=== PATIENT | male | born 1990 | race Caucasian/White ===

== ENCOUNTER 2016-12-09 14:40 | Emergency (ER) | payer OTHER ==
[~2016-12-09] VITALS: Ht 170.2 cm; Wt 68.0 kg
[2016-12-09] MEDS ORDERED: PROAIR HFA8.5 GM INH (15:11)
[2016-12-09] MEDS ORDERED: SERTRALINE HCL50 MG PO (15:11)
[2016-12-09 15:13] LABS: ABSOLUTE BASOPHIL COUNT 0 /CUMM (0.0-0.2); ABSOLUTE EOSINOPHIL COUNT 0 /CUMM (0.0-0.7); ABSOLUTE GRANULOCYTE CT 6.7 /CUMM (1.4-6.5); ABSOLUTE LYMPH COUNT 1.9 /CUMM (1.2-3.4); ABSOLUTE MONOCYTE COUNT 0.6 /CUMM (0.10-0.60); BASOPHIL % 0.3 % (0.0-2.0); EOSINOPHIL % 0.1 % (0-5); GRANULOCYTE % 72.5 % (42.2-75.2); HEMATOCRIT 49.4 % (42-52); MEAN CORPUSCULAR HGB 29.4 PG (27.0-31.0); MEAN CORPUSCULAR HGB CONC 33.8 G/DL (33.0-37.0); MEAN PLATELET VOLUME 7.5 FL (7.4-10.4); PLATELET COUNT 321 /CUMM (130-400); RBC DISTRIBUTION WIDTH 12.2 % (11.5-14.5); RED BLOOD CELL CT 5.68 /CUMM (4.70-6.10); WHITE BLOOD CELL COUNT 9.3 /CUMM (4.8-10.8)
--- NOTE | 2016-12-09 15:15 | ED PSYCHIATRIC COMPLAINT ---
History of Present Illness General Chief Complaint: Psychiatric Related Complaint Stated Complaint: ANXIETY/DEPRESSION Source: patient, family (mother) Exam Limitations: no limitations Vital Signs & Intake/Output Vital Signs & Intake/Output ED Intake and Output 12/10 0000 12/09 1200 Intake Total Output Total Balance Patient 150 lb Weight Allergies Coded Allergies: No Known Allergies (12/09/16) Reconcile Medications Albuterol Sulfate (Proair Hfa) 90 MCG HFA.AER.AD 2 PUF INH Q4-6 PRN PRN ASTHMA (Reported) Lorazepam (Ativan) 0.5 MG TABLET 1 TAB PO Q8H PRN anxiety Sertraline HCl 50 MG TABLET 1 TAB PO DAILY DEPRESSION (Reported) Triage Note: PT TO ED C/O DEPERSONALIZATION DISORDER. PT WAS RECENTLY PLACED ON ZOLOFT 1 WEEK AGO AND SINCE THEN SYMPTOMS HAVE GOTTEN WORSE AND CONSTANT. PT STATES HE FEELS LIKE HE'S NOT IN HIS BODY. DENIES ANY OTHER DAILY MEDS. -HI. UNSURE IF HE WANTS TO HURT HIMSELF "I JUST WANT TO FEEL BETTER." WAS ADMITTED AT 17 FOR CUTTING FROM SI THOUGHTS, HAS THE SAME SI FEELINGS NOW. PT BROUGHT DIRECTLY TO AREA Triage Nurses Notes Reviewed? yes HPI: Patient is a 26 year old male presents complaining of anxiety and depression. Patient has a history of depersonalization disorder, reports that he had a severe exacerbation on 10/18/16 that he was able to recover from, but since the end of October his symptoms have been worsening. Severe over the past 3 days. does not feel in touch with himself or things around him. Was started on Zoloft on 12/04/16. [place] euphoric the first day, anxious the 2nd day and worsening symptoms since. Difficulty sleeping, decreased appetite. Increased stress from his roommate leaving recently. Denies alcohol use, illicit drug use, suicidal ideation. (PATRICIA STONE,SUNSHINE) Past History Travel History Traveled to [place] past 21 day No Medical History Any Pertinent Medical History? see below for history Neurological: NONE EENT: NONE Cardiovascular: NONE Respiratory: NONE Gastrointestinal: NONE Hepatic: NONE Renal: NONE Musculoskeletal: NONE Psychiatric: depersonalization disorder Surgical History Surgical History: non-contributory Psychosocial History What is your primary language Nepali Tobacco Use: Never used ETOH Use: occasional use Illicit Drug Use: denies illicit drug use Family History Hx Contributory? No (SUNSHINE ZHOU) Review of Systems Review of Systems Constitutional: Denies: chills, fever. EENTM: Reports: no symptoms. Respiratory: Denies: short of breath. Cardiovascular: Denies: chest pain. GI: Denies: abdominal pain, nausea, vomiting. Genitourinary: Reports: no symptoms. Musculoskeletal: Reports: no symptoms. Skin: Reports: no symptoms. Neurological/Psychological: Reports: see HPI. Hematologic/Endocrine: Reports: no symptoms. Immunologic/Allergic: Reports: no symptoms. (SUNSHINE ZHOU) Physical Exam Physical Exam General Appearance: well developed/nourished, alert, awake Head: atraumatic, normal appearance Eyes: Bilateral: normal appearance. Ears, Nose, Throat: hearing grossly normal Neck: normal inspection, supple, full range of motion Respiratory: normal breath sounds, chest non-tender, no respiratory distress, lungs clear Cardiovascular: regular rate/rhythm Gastrointestinal: soft, non-tender Extremities: normal range of motion Neurological/Psychiatric: no motor/sensory deficits, awake, alert Appearance/Memory/Insight: appropriate appearance Behavoir/Eye Contact/Speech: cooperative, good eye contact Thoughts/Hallucinations: no apparent hallucination, no suicidal ideation Skin: intact, normal color, warm/dry SAD PERSONS Done? patient not suicidal (SUNSHINE ZHOU) Progress Differential Diagnosis: depersonalization disorder, suicidal ideation, homicidal ideation, mood disorder, personality disorder, psychosis, polysubstance abuse Plan of Care: Orders Procedure Date/time Status Add-on Test (ER Only) 12/09 1535 Active TSH REFLEX 12/09 1504 Complete ED CRISIS PSYCH CONSULT 12/09 1500 Active URINE DRUGS OF ABUSE 12/09 1447 Complete ETHANOL 12/09 1447 Complete COMPREHENSIVE METABOLIC PANEL 12/09 1447 Complete CBC WITHOUT DIFFERENTIAL 12/09 1447 Complete Laboratory Tests 12/09/16 1504: Anion Gap 13, Estimated GFR > 60, BUN/Creatinine Ratio 10.9, Glucose 91, Calcium 9.7, Total Bilirubin 0.5, AST 23, ALT 37, Alkaline Phosphatase 129 H, Total Protein 7.3, Albumin 4.6, Globulin 2.7, Albumin/Globulin Ratio 1.7, TSH &T3 & Free T4 Intrp 0.859, CBC w Diff NO MAN DIFF REQ, RBC 5.68, MCV 87.0, MCH 29.4, RDW 12.2, MPV 7.5, Gran % 72.5, Lymphocytes % 20.2 L, Monocytes % 6.9, Eosinophils % 0.1, Basophils % 0.3, Absolute Granulocytes 6.7 H, Absolute Lymphocytes 1.9, Absolute Monocytes 0.6, Absolute Eosinophils 0, Absolute Basophils 0, PUBS MCHC 33.8, Serum Alcohol < 10.0 12/09/16 1500: Urine Opiates Screen < 100.00, Methadone Screen < 40, Barbiturate Screen < 60, Ur Phencyclidine Scrn < 6.00, Amphetamines Screen < 100, U Benzodiazepines Scrn < 85, Urine Cocaine Screen < 50, Urine Cannabis Screen < 5.00 1645: Results of labs discussed with patient and his mother. Patient resting comfortably, no suicidal ideation. Awaiting completion of crisis consultation Patient evaluated by Crisis and cleared for discharge and outpatient follow up. Will give a dose of Ativan for his anxiety symptoms and if improving then a prescription for a short course. Discussed with Dr. Cain. (SUNSHINE ZHOU) Departure Departure Disposition: HOME OR SELF CARE Condition: Stable Clinical Impression Primary Impression: Depersonalization disorder Referrals: GINGER JOY,MADDY Veras Additional Instructions: Follow up with your therapist this week as scheduled. Return to the ER if thoughts of hurting yourself or worsening of symptoms. Departure Forms: Customer Survey General Discharge Information Prescriptions: Current Visit Scripts Lorazepam (Ativan) 1 TAB PO Q8H PRN anxiety #20 TAB (SUNSHINE ZHOU) PA/IT SOFTWARE ENGINEER Co-Sign Statement Statement: ED Attending supervision documentation- [] I saw and evaluated the patient. I have also reviewed all the pertinent lab results and diagnostic results. I agree with the findings and the plan of care as documented in the PA's/IT SOFTWARE ENGINEER's documentation. [X] I have reviewed the ED Record and agree with the PA's/IT SOFTWARE ENGINEER's documentation. [] Additions or exceptions (if any) to the PAs/IT SOFTWARE ENGINEER's note and plan are summarized below: [] (MARCO A JOY,SHARMAINE Gonzalez)
[2016-12-09] MEDS ORDERED: ATIVAN0.5 M1 PO (17:15)
--- NOTE | 2016-12-09 17:27 | ED PSYCH CRISIS CONSULTATION ---
Crisis Consult Basic Assessment Date of Consult: 12/09/16 Responsible Person/Accompanied By: brought in with Mother Insurance Authorization: Insurance #1: Insurance name: [employer] Phone number: Policy number: [id number] Group number: Authorization number: ED Provider: Patient's ED Provider: SUNSHINE ZHOU Primary Care Physician: Patient's PCP: PATIENT HAS NO PRIMARY CARE DR PCP's Phone Number: Current Psychiatrist: Could not recall name/saw her once last Saturday Chief Complaint: Psychiatric Related Complaint Patient's Quote: "i have depersonalization disorder" Present Illness: Pt is a 26 year old male, states he has depersonalization disorder, in which he reports he hears the words he is saying, but he doesn't feel like he is attached to himself. Pt reports poor sleeping, decrease in appetite. Pt reports he started zoloft 50mg on Saturday after he saw a psychiatrist one time, he reports not feeling good on it, and states years ago when he was 18 he was prescribed zoloft and ativan and it was helpful to manage trauma and anxiety symptoms, Mother agrees with her son's recount of his history. Pt denies si/hi/ah/vh. He reports self harm by cutting when he was 15 and was admitted to [facility], no additional admissions. He states he is not a fan of medication and believes wellness comes from different aspects including employment, the gym, having a girlfriend. Pt reports he came to Er to see if anything medically was not right , the labs resultes indicate normal chemsitry. Pt reports he has ruminating thoughts and is concerned. Pt not looking for inpatient level of care, is interested in switching providers and would like to ease anxiety symptomology and wants a therapist who specializes in CBT. Patient's Address: [address] [place] [address] [place] [address] Other Phone Number: Who Do You Live With? Patient/Self Family/Informants Interviewed: Elizabeth, his Mother will have patient spend the night at her home. she is worried but not for his saftey, just hoping he can get a good night sleep. Allergies - Coded Allergies: No Known Allergies (12/09/16) Current Medications - Scheduled Medications Sertraline HCl 50 MG TABLET 1 TAB PO DAILY DEPRESSION #30 (Reported) Entered as Reported by JOVITA NORMAN on 12/09/16 1511 Scheduled PRN Medications Albuterol Sulfate (Proair Hfa) 90 MCG HFA.AER.AD 2 PUF INH Q4-6 PRN PRN ASTHMA #9 (Reported) Entered as Reported by JOVITA NORMAN on 12/09/16 1511 Lorazepam (Ativan) 0.5 MG TABLET 1 TAB PO Q8H PRN anxiety #20 TAB Prescribed by SUNSHINE ZHOU on 12/09/16 Laboratory Results: Laboratory Tests 12/09/16 1504: Anion Gap 13, Estimated GFR > 60, BUN/Creatinine Ratio 10.9, Glucose 91, Calcium 9.7, Total Bilirubin 0.5, AST 23, ALT 37, Alkaline Phosphatase 129 H, Total Protein 7.3, Albumin 4.6, Globulin 2.7, Albumin/Globulin Ratio 1.7, TSH &T3 & Free T4 Intrp 0.859, CBC w Diff NO MAN DIFF REQ, RBC 5.68, MCV 87.0, MCH 29.4, RDW 12.2, MPV 7.5, Gran % 72.5, Lymphocytes % 20.2 L, Monocytes % 6.9, Eosinophils % 0.1, Basophils % 0.3, Absolute Granulocytes 6.7 H, Absolute Lymphocytes 1.9, Absolute Monocytes 0.6, Absolute Eosinophils 0, Absolute Basophils 0, PUBS MCHC 33.8, Serum Alcohol < 10.0 12/09/16 1500: Urine Opiates Screen < 100.00, Methadone Screen < 40, Barbiturate Screen < 60, Ur Phencyclidine Scrn < 6.00, Amphetamines Screen < 100, U Benzodiazepines Scrn < 85, Urine Cocaine Screen < 50, Urine Cannabis Screen < 5.00 Past History Past Medical History Neurological: NONE EENT: NONE Cardiovascular: NONE Respiratory: NONE Gastrointestinal: NONE Hepatic: NONE Renal: NONE Musculoskeletal: NONE Psychosocial History Strengths/Capabilities: employed, close with Mother, in a relationship Psychiatric Treatment History Psych Treatment Psychiatric Treatment Yes Inpatient Treatment No Outpatient Treatment Yes Location of Treatment [place] Reason for Treatment anxiety, depersonalization d/o Dates of Treatment recently connected with a psychiatrist Response to Treatment unknown Diagnosis by History: depersonalization d/o Substance Use/Abuse History Drug Use/Abuse Substances Used/Abused No Substance Abuse Treatment Substance Abuse Treatment Past Substance Abuse [place] No Current Mental Status Mental Status Orientation: Person, Place, Situation Affect: Anxious, Hopeless, Variable Speech: WNL Neuro-vegetative: Appetite Decreased, Concentration Poor, Energy Decreased, Sleep Disturbance Appearance Appearance- Dress/Hygiene: Well groomed, looks his stated age Behaviors Thought Process: WNL Thought Content: Obsessions, Somatic Memory: WNL Insight: WNL SI/HI Risk Assessment Past Suicidal Ideation/Attempts Yes Current Suicidal Ideation/Att No Past Homicidal Ideation/Att: No Current Homicidal Ideation/Attempts No Degree of Intent: None Risk Factors: high anxiety/distress, male Lethality Ratin (mild) PTSD Checklist PTSD Done? patient declined ED Management Sitter: Yes Restraints: No DSM5/PS Stressors/Medical Prob Diagnosis' (DSM 5, Stressors, Medical): Depersonalization D/O F48.1 Anxiety D/O NOS F41.9 Current GAF: 38 Departure Disposition Psych Medical Clearance Date: 12/09/16 Medically Cleared at: 1600 Time Started: 1600 Time Ended: 1700 Psychiatrist Consulted: Shani Date Disposition Established: 12/09/16 Time Disposition Established: 1700 Plan for Disposition - Modality: Outpatient Facility: [facility] Follow-up Appt Date: 12/11/16 Follow-Up Appt Time: 1030 Contact: OP Telephone: [phone] Rationale for Disposition: Consulted with Dr. Mcleod, pt given an intake appointment for med management, and outpatient services. Mother is taking him home to her house tonight, pt denies si/hi/ah/vh. Pt referred to outpatient. Referrals PATIENT HAS NO PRIMARY CARE DR (PCP/Family)
[2016-12-09 17:36] VITALS: BP 133/69
== END 2016-12-09 17:39 ==
LOC: ERH 14:40
PROVIDERS: Emergency Medicine
DX: F48.1 Depersonalization-derealization syndrome (principal)
CPT/HCPCS: 80307; G0463; G0480

== ENCOUNTER 2016-12-17 09:25 | Emergency (ER) | payer OTHER ==
[~2016-12-17] VITALS: Ht 170.2 cm; Wt 68.0 kg
[~2016-12-17 09:25] MED LIST: ATIVAN0.5 M1 PO; PROAIR HFA8.5 GM INH; SERTRALINE HCL50 MG PO
--- NOTE | 2016-12-17 09:35 | ED PSY CRISIS COLLATERAL NOTE ---
Collateral Note Collateral Note Family/Inform/Ta Contacts: Pt was sent to the ED by Out Pt therapist Priscilla Fong LCSW. She wrote the following email explaining why she sent him: Hi All: Fercho Ruiz ( 89) sent by ambulance to ED from OPS this morning 12/17/16. Please evaluate. Thanks. Fercho Ruiz was seen in ED on 12/09/16, due to having high anxiety and feeling disassociated, was referred then to [facility]. I completed an intake and now saw him this morning, he is presenting with SI, - mixed- state of intrusive thoughts - of harming himself - had thoughts of slitting his wrist when he had knife in this hand this morning. He stated "I wondered if cutting my wrist would have brought me back, where I would have been more grounded." Fercho also stated he has been exhausted, ruminating, racing thoughts, disrupted sleep, difficulty showering, has fears of the mirror and the shower. He lives alone, has a girlfriend, and Mother is a support Elizabeth Rivera [phone]. PT. has history of cutting wrist when 18yrs old. See [facility] Intake on 12/13/16. He was started on Zoloft 50mg about 10 days ago, by psychiatrist, Dawna Medrano of [facility] Out[facility] - Fercho feels his symptoms have worsened since then, but still had some of the intrusive thoughts SI prior - roommate had a gun , Pt. didn't want to be around the gun for fear he may grab it and shoot himself. PT. works full-time, wants to be himself again, stated he hasn't felt like this (depressed, anxious and "disassociated" for the past 2 months. He has a prescriber appt. in OPS on Sat. 12/21 at 8am. PT did not want to continue with Dr. Medrano (psychiatrist). May need inpatient - can on-call MD see patient? Thanks. Priscilla Fong LCSW
[2016-12-17 11:41] LABS: ABSOLUTE BASOPHIL COUNT 0 /CUMM (0.0-0.2); ABSOLUTE EOSINOPHIL COUNT 0.1 /CUMM (0.0-0.7); ABSOLUTE GRANULOCYTE CT 4.6 /CUMM (1.4-6.5); ABSOLUTE LYMPH COUNT 1.6 /CUMM (1.2-3.4); ABSOLUTE MONOCYTE COUNT 0.4 /CUMM (0.10-0.60); BASOPHIL % 0.3 % (0.0-2.0); HEMATOCRIT 46.7 % (42-52); MEAN CORPUSCULAR HGB 29.6 PG (27.0-31.0); MEAN CORPUSCULAR HGB CONC 34.4 G/DL (33.0-37.0); MEAN CORPUSCULAR VOLUME 86.1 FL (80.0-94.0); MEAN PLATELET VOLUME 7.6 FL (7.4-10.4); PLATELET COUNT 284 /CUMM (130-400); RBC DISTRIBUTION WIDTH 12.7 % (11.5-14.5); RED BLOOD CELL CT 5.42 /CUMM (4.70-6.10); WHITE BLOOD CELL COUNT 6.8 /CUMM (4.8-10.8)
--- NOTE | 2016-12-17 12:14 | ED PSYCH CRISIS CONSULTATION ---
Crisis Consult Basic Assessment Date of Consult: 12/17/16 Responsible Person/Accompanied By: joy Meza Insurance Authorization: Insurance #1: Insurance name: Responsible City Phone number: Policy number: [id number] Group number: Authorization number: ED Provider: Patient's ED Provider: HUGO CHAPA Primary Care Physician: Patient's PCP: PATIENT HAS NO PRIMARY CARE DR PCP's Phone Number: Chief Complaint: Psychiatric Related "felt dissociative" Patient's Quote: " I had a fleeying thought this morning while I was holding a box cut. Present Illness: Patient is an animated 26 year old male who appears stated age and is neat and well groomed. He was sent to the E.D. via ambulance who were called by out- patient clinician after patient had made some vague statement about having a fleeting though about how it might feel if he had cut self, as he had a boxcutter in his hand at the time. Patient had a history of superficial cutting at the age of18, and was seen at that time for about 6 months, during which time patient took %0 m.g of Zoloft and some ativan (0.5 m.g.) to help him relax and deal with the side effects. Patient states that he had been using some cannabis at that time and does feel that it may ("probably") contributed to his problems with feeling "disociative", and cutting upper leg. Patient had return of symptoms recently, and went to see a quality review specialist in [place] where he works. Patient wiorks in a job that he states that he likes, and is a rather fun occupation. 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 Patient has recently moved into his own apartment, and has a supportive girlfriend who"syays over some times", and a very suppotive mother who lives nearby.Mother states that patient worries "too much" about money; and that he actually has had "worries" since age of 13 that seem to prevent him from fully enjoying life. "He overthinks things, and sees the potential adverse effects". Patient was upset that he had to be transported by ambulance, as he denies being suicidal, and felt that he was glad that he would at least see a psychiatrist, and possibly have a medication change. Since this is not standard procedure, he was cautioned that it could not be guaranteed. Patients mother was called and met with myself and then the 3 of us. Mother upset that she did not know that he was here, but gave helpful background information, and is very supportive to patient. Patient denies any health concerns. Patient emphatically denies any S.I. Patient would be interested in [facility], but spoke to Adilia, and there are no openings now or in near future. Patient's Address: [address] [place] [address] [place] [address] Other Phone Number: Who Do You Live With? Patient/Self Family/Informants Interviewed: Mother Elizabeth Ruiz Allergies - Coded Allergies: No Known Allergies (12/09/16) Current Medications - Scheduled Medications Lorazepam (Ativan) 1 MG TABLET 1 TAB PO BID anxiety #20 TAB Prescribed by HUGO SOLIS PA-C on 12/17/16 Sertraline HCl 50 MG TABLET 1 TAB PO DAILY DEPRESSION #30 (Reported) Entered as Reported by JOVITA NORMAN on 12/09/16 1511 Last Taken: 12/17/16 Scheduled PRN Medications Lorazepam (Ativan) 0.5 MG TABLET 1 TAB PO Q8H PRN anxiety #20 TAB Prescribed by SUNSHINE ZHOU on 12/09/16 Last Taken: At an unknown date and time Laboratory Results: Laboratory Tests 12/17/16 1112: Anion Gap 8, Estimated GFR > 60, BUN/Creatinine Ratio 10.0, Glucose 95, Calcium 9.8, Total Bilirubin 0.7, AST 17, ALT 29, Alkaline Phosphatase 122, Total Protein 6.8, Albumin 4.2, Globulin 2.6, Albumin/Globulin Ratio 1.6, CBC w Diff NO MAN DIFF REQ, RBC 5.42, MCV 86.1, MCH 29.6, RDW 12.7, MPV 7.6, Gran % 68.0, Lymphocytes % 24.4, Monocytes % 6.3, Eosinophils % 1.0, Basophils % 0.3, Absolute Granulocytes 4.6, Absolute Lymphocytes 1.6, Absolute Monocytes 0.4, Absolute Eosinophils 0.1, Absolute Basophils 0, PUBS MCHC 34.4, Serum Alcohol < 10.0 03/06/17 1000: Urine Opiates Screen < 100.00, Methadone Screen < 40, Barbiturate Screen < 60, Ur Phencyclidine Scrn < 6.00, Amphetamines Screen < 100, U Benzodiazepines Scrn < 85, Urine Cocaine Screen < 50, Urine Cannabis Screen < 5.00 Past History Past Medical History Neurological: NONE EENT: NONE Cardiovascular: NONE Respiratory: NONE Gastrointestinal: NONE Hepatic: NONE Renal: NONE Musculoskeletal: NONE Psychiatric: depersonalization disorder Endocrine: NONE Blood Disorders: NONE Cancer(s): NONE HAND SANDER/Reproductive: NONE Past Surgical History Surgical History: non-contributory Psychosocial History Strengths/Capabilities: employed, close with Mother, in a relationship Physical Limitations (Interventions): none Psychiatric Treatment History Psych Treatment Psychiatric Treatment Yes Inpatient Treatment No Outpatient Treatment Yes Location of Treatment [place], and now [facility] x 2 weeks. Treated also at 18 for 6 mon Reason for Treatment anxiety ocd Dates of Treatment was successful at age 18. Patient feels presently that symptoms are wors Response to Treatment see aove Diagnosis by History: depersonalization d/o Substance Use/Abuse History Drug Use/Abuse Substances Used/Abused Yes Substance Used/Abused Marijuana First Use age 18 Last Used age 18 How much used/taken joint every other day For how long few months Route of use smoke Substance Abuse Treatment Substance Abuse Treatment Past Substance Abuse [place] No Comments: feels cannabis contributed to psych probles and so he stopped completely, and staes does not use any substances Current Mental Status Mental Status Orientation: Person, Place, Situation Affect: Anxious, Constricted, Sad Speech: WNL Neuro-vegetative: Appetite Decreased, Energy Decreased, Sleep Disturbance Appearance Appearance- Dress/Hygiene: well groomed Behaviors Thought Process: Tangential Thought Content: Obsessions Memory: WNL Insight: Fair SI/HI Risk Assessment Past Suicidal Ideation/Attempts No Current Suicidal Ideation/Att No Past Homicidal Ideation/Att: No Current Homicidal Ideation/Attempts No Degree of Intent: Thoughts/No Intent Risk Factors: age (under 24/over 65), access to lethal means, high anxiety/ distress, lives alone, male Lethality Ratin (mild) PTSD Checklist PTSD Done? patient declined ED Management Sitter: Yes Restraints: No DSM5/PS Stressors/Medical Prob Diagnosis' (DSM 5, Stressors, Medical): Anxiety disorder F41.1 OCD F 42 Current GAF: 48 Comments: Patient was reassured by Dr Snyder that symtoms could get worse before they get better, and Zoloft was doubled Patient will be seeing DR Figueroa in several days, and patient given script for a few days additional Ativan Departure Disposition Psych Medical Clearance Date: 12/17/16 Medically Cleared at: 0855 Time Started: 0900 Time Ended: 944 Psychiatrist Consulted: Loida Date Disposition Established: 12/17/16 Time Disposition Established: 1200 Plan for Disposition - Modality: Outpatient Facility: [facility] Follow-up Appt Date: 12/21/16 Follow-Up Appt Time: 1000 Contact: Dr Figueroa Rationale for Disposition: Pt not suicidal Not at all interested in in-patient treatment Agrees to give meds a chance Referrals PATIENT HAS NO PRIMARY CARE (PCP/Family)
[2016-12-17] MEDS ORDERED: ATIVAN1 M1 PO (12:17)
--- NOTE | 2016-12-17 12:18 | ED PSYCHIATRIC COMPLAINT ---
History of Present Illness General Chief Complaint: Psychiatric Related Complaint Stated Complaint: BIBA FOR +SI Source: patient Exam Limitations: no limitations Vital Signs & Intake/Output Vital Signs & Intake/Output Vital Signs Date Time Temp Pulse Resp B/P Pulse O2 O2 Flow FiO2 Ox Delivery Rate 12/17 1229 98.4 80 16 128/71 12/17 0945 97.6 75 16 116/68 98 Room Air 12/17 0942 100 Room Air Allergies Coded Allergies: No Known Allergies (12/09/16) Reconcile Medications Lorazepam (Ativan) 1 MG TABLET 1 TAB PO BID anxiety Lorazepam (Ativan) 0.5 MG TABLET 1 TAB PO Q8H PRN anxiety Sertraline HCl 50 MG TABLET 1 TAB PO DAILY DEPRESSION (Reported) Triage Note: 26 Y/O MALE BIBA FROM OUTPATIENT PSYCH FOR EVAL OF SI STATEMENTS. PT ARRIVES A/O X 4; VOLUNTARY AND NOT ON PEER. PT STATES "I WAS AT MY THERAPIST AND I SAID I HAD HAD THOUGHTS OF SI AND NOW IM HERE. I THOUGHT I WAS GOING TO HAVE A NORMAL DAY". DURING LAST ADMISSION, ATIVAN WAS PRESRIBED WHICH PT STATES HE HAS BEEN TAKING WITH SOME RELIEF OF SYMPTOMS. PLEASANT, CALM AND COOPERATIVE. BERTHA ARIAS INTO EVAL. Triage Nurses Notes Reviewed? yes Onset: Abrupt Timing: recent history Severity: mild, moderate HPI: 26-year-old male comes into emergency room sent in by his therapist for further evaluation of suicidal ideation. Patient was here last week. Patient was discharged. Patient reports that he was recently started on Zoloft a couple weeks ago and is currently taking Ativan as needed for anxiety. He reports that he recently moved into a new apartment by himself. He has depersonalization disorder and has been very anxious recently. Patient reports that he was following up with his therapist as he usually does and he told her about a fleeting thought of how he wanted to may be cut himself because he feels so desensitized. Denies any alcohol use or drug use. Denies any physical pain. Patient reports that he wants to get better and wants to live and denies any suicidal thoughts currently. Patient has been dealing with this for a long time intermittently. Patient reports that he had this many years ago and it was good for a long time but recently a few months ago he's been having high stress and anxiety Past History Travel History Traveled to [place] past 21 day No Medical History Any Pertinent Medical History? see below for history Neurological: NONE EENT: NONE Cardiovascular: NONE Respiratory: NONE Gastrointestinal: NONE Hepatic: NONE Renal: NONE Musculoskeletal: NONE Psychiatric: anxiety, depression, depersonalization disorder Endocrine: NONE Blood Disorders: NONE Cancer(s): NONE WOOD TYPE FINISHER/Reproductive: NONE Surgical History Surgical History: non-contributory Psychosocial History Who do you live with Patient/Self What is your primary language [place] Tobacco Use: Never used Family History Hx Contributory? No Review of Systems Review of Systems Constitutional: Reports: no symptoms. EENTM: Reports: no symptoms. Respiratory: Reports: no symptoms. Cardiovascular: Reports: no symptoms. GI: Reports: no symptoms. Genitourinary: Reports: no symptoms. Musculoskeletal: Reports: no symptoms. Skin: Reports: no symptoms. Neurological/Psychological: Reports: see HPI. Hematologic/Endocrine: Reports: no symptoms. Immunologic/Allergic: Reports: no symptoms. All Other Systems: Reviewed and Negative Physical Exam Physical Exam General Appearance: well developed/nourished, mild distress Head: atraumatic Eyes: Bilateral: normal appearance, EOMI. Ears, Nose, Throat: normal ENT inspection, hearing grossly normal Neck: normal inspection Respiratory: normal breath sounds, no respiratory distress Cardiovascular: regular rate/rhythm Extremities: normal range of motion Neurological/Psychiatric: awake, alert, normal mood/affect Appearance/Memory/Insight: appropriate appearance, appropriate insight Behavoir/Eye Contact/Speech: cooperative Thoughts/Hallucinations: normal thought pattern, no apparent hallucination Skin: intact, normal color, warm/dry SAD PERSONS Done? patient not suicidal Progress Differential Diagnosis: dementia, drug intoxication, drug overdose, drug withdrawal, electrolyte abnormality, encephalitis, hypoglycemia, hypothyroidism, IC hem/mass/tumor, meningitis, OCD, depersonalization disorder, generalized anxiety disorder, panic disorder, Plan of Care: Orders Procedure Date/time Status Regular Diet 12/17 D Active ETHANOL 12/17 1033 Complete COMPREHENSIVE METABOLIC PANEL 12/17 1033 Complete CBC WITHOUT DIFFERENTIAL 12/17 1033 Complete URINE DRUGS OF ABUSE 12/17 0941 Complete ED CRISIS PSYCH CONSULT 12/17 0941 Active Laboratory Tests 12/17/16 1112: Anion Gap 8, Estimated GFR > 60, BUN/Creatinine Ratio 10.0, Glucose 95, Calcium 9.8, Total Bilirubin 0.7, AST 17, ALT 29, Alkaline Phosphatase 122, Total Protein 6.8, Albumin 4.2, Globulin 2.6, Albumin/Globulin Ratio 1.6, CBC w Diff NO MAN DIFF REQ, RBC 5.42, MCV 86.1, MCH 29.6, RDW 12.7, MPV 7.6, Gran % 68.0, Lymphocytes % 24.4, Monocytes % 6.3, Eosinophils % 1.0, Basophils % 0.3, Absolute Granulocytes 4.6, Absolute Lymphocytes 1.6, Absolute Monocytes 0.4, Absolute Eosinophils 0.1, Absolute Basophils 0, PUBS MCHC 34.4, Serum Alcohol < 10.0 12/17/16 1000: Urine Opiates Screen < 100.00, Methadone Screen < 40, Barbiturate Screen < 60, Ur Phencyclidine Scrn < 6.00, Amphetamines Screen < 100, U Benzodiazepines Scrn < 85, Urine Cocaine Screen < 50, Urine Cannabis Screen < 5.00 Comments: 12/17/2016 2:29:15 PM Patient clinically looks well. Patient is nontoxic appearing. Patient was seen by psychiatry and cleared to go home. Patient offered appropriate insight here in the emergency room. Patient denies being a harm to himself or anyone else. Patient will follow up with his therapist and psychiatrist as an outpatient. Psychiatrist saw him here in the emergency room and did a formal consult. Departure Departure Disposition: HOME OR SELF CARE Condition: Stable Clinical Impression Primary Impression: OCD (obsessive compulsive disorder) Secondary Impressions: Anxiety disorder Referrals: PATIENT HAS NO PRIMARY CARE DR (PCP/Family) Additional Instructions: Take Ativan as prescribed. Follow-up with your psychiatrist. Return to emergency room immediately if any other concerns worsening symptoms. Departure Forms: Customer Survey General Discharge Information Prescriptions: Current Visit Scripts Lorazepam (Ativan) 1 TAB PO BID #20 TAB
--- NOTE | 2016-12-17 12:21 | OP PSYCH INCIDENTAL NOTE ---
OPS Incidential Note Details: Pt was seen in Crisis Intervention with his mother, I reviewed his record, discussed his symptoms, medications and their effects and side effects. Pt has history of self-harm but no suicide attempts, not interested in inpatient treatment, denying intent or plan for suicide, his mother lives close by I went over his plans for the next 4 days (he has a follow up appointment with Dr. Figueroa on 12/21/2016) Pharmacological recommendations: Increase Sertraline to 100 mg daily Use Ativan 0.5 mg as frequently as every 6 hours for hightened state of anxiety Follow up with Dr. Figueroa on 12/21/2016
[2016-12-17 12:29] VITALS: BP 128/71
--- NOTE | 2016-12-17 15:33 | ED PSYCHIATRIST/APRN CONSULT ---
Psychiatrist/EN[employer]ISH [employer]AGE [employer]ER ED Consult Assessment and Plan: Details: Pt was seen in Crisis Intervention with his mother, I reviewed his record, discussed his symptoms, medications and their effects and side effects. Pt has history of self-harm but no suicide attempts, not interested in inpatient treatment, denying intent or plan for suicide, his mother lives close by I went over his plans for the next 4 days (he has a follow up appointment with Dr. Figueroa on 12/21/2016) Pharmacological recommendations: Increase Sertraline to 100 mg daily Use Ativan 0.5 mg as frequently as every 6 hours for hightened state of anxiety Follow up with Dr. Figueroa on 12/21/2016
== END 2016-12-17 12:40 ==
LOC: ERH 09:25
PROVIDERS: Physician Assistant Medical
DX: F42.9 Obsessive-compulsive disorder, unspecified (principal); F41.9 Anxiety disorder, unspecified
CPT/HCPCS: 80307; G0463; G0480